=== PATIENT | male | born 1960 | race Caucasian/White ===

== ENCOUNTER 2017-12-03 21:55 | Emergency (ER) | payer BC, OTHER ==
[2017-12-03 21:55] VITALS: BMI 25.7
[2017-12-03 22:01] VITALS: BP 145/88; PULSE 73; RESP 16; TEMP 98.8; O2SAT 97
--- NOTE | 2017-12-03 22:44 | ED PDOC ---
Upper Extremity Pain/Injury Time Seen by Provider: 12/03/17 22:02 Chief Complaint (Nursing): Upper Extremity Problem/Injury Chief Complaint (Provider): Left Elbow Injury History Per: Patient History/Exam Limitations: no limitations Onset/Duration Of Symptoms: Days (x7) Pain Scale Rating Of: 4 Exacerbating Factor(s): Movement (bending the elbow) Additional Complaint(s): Patient is a 57 year old male who presents for evaluation of left elbow swelling. Patient states that 1 week ago he was attempting to jump over a puddle of water when he struck his left elbow against a metal door frame. Patient states that initially he had significant pain and bruising which has since resolved, but notes that for the past few days his elbow has been swelling , especially after lifting weights at the gym. Patient denies any history of elbow injury and took no medications prior to arrival. He reports mild pain with bending the elbow, otherwise patient has no complaints at present. Patient is right hand dominant. PMD: Ashok Pruitt Past Medical History Reviewed: Historical Data, Nursing Documentation, Vital Signs Vital Signs: Last Vital Signs Temp 98.8 F 12/03/17 21:58 Pulse 73 12/03/17 21:58 Resp 16 12/03/17 21:58 BP 145/88 12/03/17 21:58 Pulse Ox 97 12/03/17 21:58 - Medical History PMH: HTN, Hypercholesterolemia, Hyperlipidemia - Family History Family History: States: Unknown Family Hx - Living Arrangements Living Arrangements: With Family - Social History Current smoker - smoking cessation education provided: No Drugs: Denies - Home Medications Home Medications: Ambulatory Orders Medication Instructions Recorded Atorvastatin Calcium 40 mg PO DAILY 03/11/14 Enalapril Maleate 2.5 mg PO BID 03/11/14 Ezetimibe [Zetia] 10 mg PO DAILY 03/11/14 Metoprolol Tartrate 25 mg PO BID 03/11/14 Aspirin 81 mg PO DAILY #0 ect 03/15/14 Azithromycin [Zithromax] 500 mg PO DAILY #10 tab 03/15/14 Cefdinir [Omnicef] 300 mg PO Q12H #14 cap 03/15/14 Lactobacillus Acidophilus [Bacid] 500 million PO DAILY #0 cap 03/15/14 Azithromycin [Zithromax] 250 mg PO DAILY #6 tab 02/15/16 Cyclobenzaprine [Flexeril] 5 mg PO TID #21 tab 07/15/15 Famotidine [Pepcid] 20 mg PO BID #14 tab 07/15/15 Naproxen 500 mg PO BID #14 tab 07/15/15 Naproxen 500 mg PO BID PRN #20 tab 12/03/17 - Allergies Allergies/Adverse Reactions: Allergies Allergy/AdvReac Type Severity Reaction Status Date / Time No Known Allergies Allergy Verified 12/03/17 21:58 Review of Systems ROS Statement: Except As Marked, All Systems Reviewed And Found Negative Musculoskeletal: Positive for: Other (Left Elbow Pain) Physical Exam - Reviewed Nursing Documentation Reviewed: Yes Vital Signs Reviewed: Yes - Physical Exam Appears: Positive for: Well, Non-toxic, No Acute Distress Head Exam: Positive for: ATRAUMATIC, NORMOCEPHALIC Skin: Positive for: Normal Color, Warm, Dry Eye Exam: Positive for: EOMI, PERRL ENT: Positive for: Other (Airway patent, (-) stridor. Mucus membranes moist.) Neck: Positive for: Painless ROM, Supple Cardiovascular/Chest: Positive for: Regular Rate, Rhythm Respiratory: Positive for: Normal Breath Sounds. Negative for: Decreased Breath Sounds, Accessory Muscle Use, Respiratory Distress Extremity: Positive for: Normal ROM (of left elbow ), Tenderness (to olecranon) , Capillary Refill (intact), Swelling (to olecranon bursa), Other (Sensation intact throughout. (-) ecchymosis (-) skin break (-) erythema) Neurologic/Psych: Positive for: Alert, Oriented (x3), Gait (steady). Negative for: Aphasia, Facial Droop - ECG O2 Sat by Pulse Oximetry: 97 (RA) Pulse Ox Interpretation: Normal Medical Decision Making Medical Decision Making: Initial Impression: Elbow injury, probable bursitis Plan: -Ibuprofen 600mg PO -Elbow XR three views -Re-evaluation 2340 XR : no fracture, no dislocation, (+) soft tissue swelling to olecranon as read by PA Patient advised that official radiology read of XR is still pending and will call the patient if there is any discrepancy within 24 hours. On re-evaluation, patient reports improvement of symptoms On exam, patient remains AAOx3, in no acute distress. On exam, neck is supple, lungs CTA, cardiac RRR, neuro exam shows no focal findings. VSS, stable for discharge. Diagnostic results d/w the patient in great detail. Dx of acute elbow pain and swelling, olecranon bursitis d/w the patient. Based on history, exam and diagnostic results plan will be for discharge and outpatient ortho follow up. Advised to follow up with primary care physician/ortho in 1-2 days without fail. Advised to take medication as prescribed. Return to the emergency room at any time for any new or worsening symptoms. Patient states he fully agrees with and understands discharge instructions. States that he agrees with the plan and disposition. Verbalized and repeated discharge instructions and plan. I have given the patient opportunity to ask any additional questions. Disposition - Clinical Impression Clinical Impression: Bursitis of left elbow, Elbow pain, left - Patient ED Disposition Is Patient to be Admitted: No Counseled Patient/Family Regarding: Studies Performed, Diagnosis, Need For Followup, Rx Given - Disposition Referrals: Raji Santacruz MD [Medical Doctor] - Disposition: Routine/Home Disposition Time: 23:41 Condition: STABLE Additional Instructions: The emergency medical care you received today was directed at your acute symptoms. If you were prescribed any medication, please fill it and take as directed. It may take several days for your symptoms to resolve. Return to the Emergency Department if your symptoms worsen, do not improve, or if you have any other problems. Please contact your doctor in 2 days for re-evaluation and follow up / or call one of the physicians/clinics you have been referred to that are listed on the Patient Visit Information form that is included in your discharge packet. Bring any paperwork you were given at discharge with you along with any medications you are taking to your follow up visit. Our treatment cannot replace ongoing medical care by a primary care provider (PCP) outside of the emergency department. Prescriptions: Naproxen 500 mg PO BID PRN #20 tab PRN Reason: Pain, Moderate (4-7) Instructions: Bursitis, Olecranon Bursitis Forms: [employer] [facility] (Mauritian) Print Language: GABONESE - POA Present On Arrival: Falls Or Trauma
--- NOTE | 2017-12-04 16:12 | RAD ---
Date of service: 12/03/2017 PROCEDURE: Radiographs of the left elbow. HISTORY: joint pain COMPARISON: No prior. FINDINGS: BONES: Normal. No fracture. JOINTS: Normal. No osteoarthritis. SOFT TISSUES: Normal. JOINT EFFUSION: None. OTHER FINDINGS: None IMPRESSION: Unremarkable radiographs of the left elbow.
== END 2017-12-04 00:06 | disposition home or self-care (01) ==
LOC: H.ER 21:55
DX: M70.22 Olecranon bursitis, left elbow (principal); M25.522 Pain in left elbow; I10 Essential (primary) hypertension; Z79.82 Long term (current) use of aspirin; E78.00 Pure hypercholesterolemia, unspecified; W22.09XA Striking against other stationary object, initial encounter

== ENCOUNTER 2017-12-16 18:27 | Emergency (ER) | payer BC ==
[2017-12-16 18:27] VITALS: BMI 25.7
[2017-12-16 18:42] VITALS: RESP 16; TEMP 98
[2017-12-16] MEDS ORDERED: Sodium Chloride 0.9% 1,000 ML IV STA (19:21)
--- NOTE | 2017-12-16 19:24 | ED PDOC ---
HPI: Altered Mental Status Time Seen by Provider: 12/16/17 19:13 Chief Complaint (Nursing): Altered Mental Status Chief Complaint (Provider): confusion History Per: Family History/Exam Limitations: None Onset/Duration Of Symptoms: Sudden Onset (5pm) Current Symptoms Are (Timing): Gone Now Description Of Symptoms: Confused Usual Baseline: Alert Confused Exacerbating Factor(s): Other (heat) Associated Symptoms: Disoriented, Confused, Not Eating, Dyspnea. denies: Fever , Chills, Sweating, Chest Pain, Vomiting Additional Complaint(s): reports that the patient had spent 3 hours outside in the afternoon cleaning his car (90 degrees and humid). He hadn't eaten anything since breakfast. When he came up to the house, he took a shower. But his reports that he was confused and didn't remember he was cleaning his car and he ate a sandwich and went back to take another shower. The tried to ask him simple questions and he was not oriented. He thought he had to work today (normally doesn't work on Mondays) and tried to get ready for work even though it was 5pm (normally he works at 7am.) Pt says he is starting to recall his day just now, but feels lightheaded. Denies chest pain but reports he had shortness of breath earlier when he was hot. Denies headache or weakness. PMD Dr Pruitt. Past Medical History Reviewed: Historical Data, Nursing Documentation, Vital Signs Vital Signs: Last Vital Signs Temp 98.0 F 12/16/17 18:38 Pulse 78 12/16/17 18:38 Resp 16 12/16/17 18:38 BP 148/84 12/16/17 18:38 Pulse Ox 99 12/16/17 18:38 - Medical History PMH: HTN, Hypercholesterolemia, Hyperlipidemia Denies: HIV, Chronic Kidney Disease - Surgical History Surgical History: No Surg Hx - Family History Family History: States: Hypertension - Social History Current smoker - smoking cessation education provided: No Drugs: Denies - Immunization History Hx Tetanus Toxoid Vaccination: No Hx Influenza Vaccination: No Hx Pneumococcal Vaccination: No - Home Medications Home Medications: Ambulatory Orders Medication Instructions Recorded Atorvastatin Calcium 40 mg PO DAILY 03/11/14 Enalapril Maleate 2.5 mg PO BID 03/11/14 Ezetimibe [Zetia] 10 mg PO DAILY 03/11/14 Metoprolol Tartrate 25 mg PO BID 03/11/14 Aspirin 81 mg PO DAILY #0 ect 03/15/14 Azithromycin [Zithromax] 500 mg PO DAILY #10 tab 03/15/14 Cefdinir [Omnicef] 300 mg PO Q12H #14 cap 03/15/14 Lactobacillus Acidophilus [Bacid] 500 million PO DAILY #0 cap 03/15/14 Azithromycin [Zithromax] 250 mg PO DAILY #6 tab 06/06/15 Cyclobenzaprine [Flexeril] 5 mg PO TID #21 tab 07/15/15 Famotidine [Pepcid] 20 mg PO BID #14 tab 07/15/15 Naproxen 500 mg PO BID #14 tab 07/15/15 Naproxen 500 mg PO BID PRN #20 tab 12/03/17 - Allergies Allergies/Adverse Reactions: Allergies Allergy/AdvReac Type Severity Reaction Status Date / Time No Known Allergies Allergy Verified 12/03/17 21:58 Review of Systems ROS Statement: Except As Marked, All Systems Reviewed And Found Negative (and as per HPI) Constitutional: Positive for: Sweats, Weakness, Malaise. Negative for: Fever Cardiovascular: Positive for: Light Headedness. Negative for: Chest Pain Respiratory: Positive for: Shortness of Breath. Negative for: Cough Neurological: Positive for: Confusion, Altered Mental Status. Negative for: Weakness, Numbness, Headache Physical Exam - Reviewed Nursing Documentation Reviewed: Yes Vital Signs Reviewed: Yes - Physical Exam Appears: Positive for: Non-toxic, No Acute Distress Head Exam: Positive for: ATRAUMATIC, NORMOCEPHALIC Skin: Positive for: Warm, Dry Eye Exam: Positive for: EOMI, PERRL ENT: Positive for: Other (mucus membranes moist). Negative for: Pharyngeal Erythema, Tonsillar Exudate Neck: Positive for: Painless ROM, Supple Cardiovascular/Chest: Positive for: Regular Rate, Rhythm. Negative for: Murmur Respiratory: Positive for: Normal Breath Sounds. Negative for: Wheezing Gastrointestinal/Abdominal: Positive for: Soft. Negative for: Tenderness Back: Positive for: Normal Inspection. Negative for: Decreased ROM Extremity: Positive for: Normal ROM. Negative for: Deformity Lymphatic: Negative for: Adenopathy Neurologic/Psych: Positive for: Alert. Negative for: Motor/Sensory Deficits - Laboratory Results Result Diagrams: 12/16/17 19:37 12/16/17 19:37 - ECG O2 Sat by Pulse Oximetry: 99 - Progress ED Course And Treament: EXAM: CT Head Without Intravenous Contrast EXAM DATE/TIME: 12/16/2017 7:21 PM CLINICAL HISTORY: 57 years old, male; Signs and symptoms; Dizziness and other: AMS; Additional info: Altered mental status TECHNIQUE: Axial computed tomography images of the head/brain without intravenous contrast. All CT scans at this facility use at least one of these dose optimization techniques: automated exposure control; mA and/or kV adjustment per patient size (includes targeted exams where dose is matched to clinical indication); or iterative reconstruction. Coronal and sagittal reformatted images were created and reviewed. COMPARISON: No relevant prior studies available. FINDINGS: Brain: Normal. No hemorrhage. No significant white matter disease. No edema. Ventricles: Normal. No ventriculomegaly. Bones/joints: Normal. No acute fracture. Sinuses: Normal as visualized. No acute sinusitis. Mastoid air cells: Normal as visualized. No mastoid effusion. Soft tissues: Normal. IMPRESSION: No acute intracranial pathology. Thank you for allowing us to participate in the care of your patient. Dictated and Authenticated by: Dick Pandey MD 12/16/2017 8:14 PM Eastern Time ([place] & [place]) Medical Decision Making Medical Decision Makinyo with no medical problems with altered mental status after prolonged time outdoors in 90degree heat and humidity, nonfocal exam, normal bloodwork and brain imaging, and resolution of symptoms while in ER and after IVF hydration. Stable for dc with continued rest and f/u pmd. Educated on dangers of heat exposure. Disposition - Clinical Impression Clinical Impression: Heat stroke Counseled Patient/Family Regarding: Studies Performed, Diagnosis, Need For Followup - Disposition Referrals: Ashok Pruitt MD [Family Provider] - 12/17/17 [facility] Cummings [Outside] Disposition: Routine/Home Disposition Time: 21:00 Condition: IMPROVED Additional Instructions: CONTINUE TO REST AND DRINK PLENTY OF HYDRATING FLUIDS FOLLOW UP WITH DR PRUITT OR SONIA RICKS IN 24-48 HOURS FOR REEVALUATION. Instructions: Heat Exhaustion and Heat Stroke (DC) Forms: [facility] ED School/Work Excuse, [facility] (Panamanian) Print Language: LUXEMBOURGISH
[2017-12-16 19:44] LABS: BASO # 0.1 K/uL (0.0-0.2); BASO % 0.9 % (0.0-2.0); EOS # 0.1 K/uL (0.0-0.7); HEMOGLOBIN 13.7 g/dL (12.0-18.0); LYMPH # 2.1 K/uL (1.0-4.3); LYMPH % 21.6 % (20.0-40.0); MEAN CELL VOLUME 94.7 fl (80.0-94.0); MEAN CORPUSCULAR HEMOGLOBIN 32.1 pg (27.0-31.0); MEAN CORPUSCULAR HGB CONC 33.9 g/dL (33.0-37.0); MEAN PLATELET VOLUME 8.1 fl (7.2-11.7); MONO % 9.9 % (0.0-10.0); NEUT # 6.4 K/uL (1.8-7.0); NEUT % 66.6 % (50.0-75.0); RBC 4.27 Mil/uL (4.40-5.90); RED CELL DISTRIBUTION WIDTH 14.4 % (11.5-14.5); WHITE BLOOD COUNT 9.6 K/uL (4.8-10.8)
[2017-12-16 19:55] LABS: ALB/GLOB RATIO 1.4 (1.0-2.1); ALBUMIN 4.3 g/dL (3.5-5.0); ALT/SGPT 37 U/L (21-72); AST/SGOT 38 U/L (17-59); BLOOD UREA NITROGEN 20 mg/dl (9-20); CALCIUM 9.3 mg/dL (8.4-10.2); GFR NON-AFRICAN AMERICAN > 60
[2017-12-16 20:23] VITALS: PULSE 61
[2017-12-16 20:54] LABS: BARBITURATES, UR NEGATIVE (NEGATIVE); BENZODIAZEPINES, UR NEGATIVE (NEGATIVE); OPIATES, UR NEGATIVE (NEGATIVE); PHENCYCLIDINE, UR NEGATIVE (NEGATIVE)
[2017-12-16 21:41] VITALS: BP 134/75; O2SAT 100
--- NOTE | 2017-12-17 09:29 | CT ---
Date of service: 12/16/2017 PROCEDURE: CT HEAD WITHOUT CONTRAST. HISTORY: altered mental status COMPARISON: None available. TECHNIQUE: Axial computed tomography images were obtained through the head/brain without intravenous contrast. Radiation dose: Total exam DLP = 839.48 mGy-cm. This CT exam was performed using one or more of the following dose reduction techniques: Automated exposure control, adjustment of the mA and/or kV according to patient size, and/or use of iterative reconstruction technique. FINDINGS: HEMORRHAGE: No intracranial hemorrhage. BRAIN: Anguiano-white matter differentiation is preserved. There is no mass, mass effect or abnormal extra-axial fluid collection. There is no territorial infarction. The midline sagittal structures are normal. VENTRICLES: The ventricles are normal in size, shape and configuration. CALVARIUM: There is no calvarial fracture or extracranial soft tissue swelling. PARANASAL SINUSES: Predominantly clear. MASTOID AIR CELLS: Predominantly clear. OTHER FINDINGS: None. IMPRESSION: No acute intracranial abnormality. A preliminary report was provided by [facility] services.
--- NOTE | 2017-12-17 09:31 | CARD ---
APPROVED REPORT Date of service: 12/16/2017 <Conclusion> Sinus rhythm with sinus arrhythmia with occasional premature ventricular complexes Otherwise normal ECG
== END 2017-12-16 21:40 | disposition home or self-care (01) ==
LOC: H.ER 18:27
DX: T67.0XXA Heatstroke and sunstroke, initial encounter (principal); I10 Essential (primary) hypertension; Z79.82 Long term (current) use of aspirin; E78.00 Pure hypercholesterolemia, unspecified
CPT/HCPCS: 70450; 80053; 82140; 82550; 82948; 83605; 83735; 84100; 84484; 85025; 93005; 96360; 99285; G0480; J7030

== ENCOUNTER 2018-03-16 17:01 | Emergency (ER) | payer BC ==
[2018-03-16 17:03] VITALS: BMI 25.7
[2018-03-16 17:13] VITALS: RESP 18
[2018-03-16] MEDS ORDERED: Magnesium Hydroxide Susp 30 ml UD PO STA (17:35)
--- NOTE | 2018-03-16 17:35 | ED PDOC ---
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 drank approx 1/4 of a 8 ounce bottle of investment strategist at 10am when trying to take his bp med. He vomited right after and pill fragments also came out. After that pt. went to the gym, carried on with his day, and had soup. He came to the ER now as he was having nausea and a foul smell in his mouth. No abd pain, chest pain, dyspnea, weakness, headaches, dizziness, neck pain, fever, dizziness, diarhea. Past Medical History Reviewed: Nursing Documentation, Vital Signs Vital Signs: Last Vital Signs Temp 98.2 F 03/16/18 17:09 Pulse 56 L 03/16/18 17:09 Resp 18 03/16/18 17:09 BP 157/94 H 03/16/18 17:09 Pulse Ox 99 03/16/18 17:09 - Medical History PMH: HTN, Hypercholesterolemia, Hyperlipidemia Denies: HIV, Chronic Kidney Disease - Surgical History Surgical History: No Surg Hx - Family History Family History: States: Unknown Family Hx - Living Arrangements Living Arrangements: With Family - Immunization History Hx Tetanus Toxoid Vaccination: No Hx Influenza Vaccination: No Hx Pneumococcal Vaccination: No - Home Medications Home Medications: Ambulatory Orders Medication Instructions Recorded Atorvastatin Calcium 40 mg PO DAILY 03/11/14 Enalapril Maleate 2.5 mg PO BID 03/11/14 Ezetimibe [Zetia] 10 mg PO DAILY 03/11/14 Metoprolol Tartrate 25 mg PO BID 03/11/14 Aspirin 81 mg PO DAILY #0 ect 03/15/14 Azithromycin [Zithromax] 500 mg PO DAILY #10 tab 03/15/14 Cefdinir [Omnicef] 300 mg PO Q12H #14 cap 03/15/14 Lactobacillus Acidophilus [Bacid] 500 million PO DAILY #0 cap 03/15/14 Azithromycin [Zithromax] 250 mg PO DAILY #6 tab 06/06/15 Cyclobenzaprine [Flexeril] 5 mg PO TID #21 tab 07/15/15 Famotidine [Pepcid] 20 mg PO BID #14 tab 07/15/15 Naproxen 500 mg PO BID #14 tab 07/15/15 Naproxen 500 mg PO BID PRN #20 tab 12/03/17 Famotidine [Pepcid] 40 mg PO DAILY PRN 5 Days tab 03/16/18 Magnesium Hydroxide [Milk Of 30 ml PO DAILY PRN 5 Days udc 03/16/18 Magnesia] Ondansetron [Zofran] 4 mg PO Q8H PRN #6 tab 03/16/18 - Allergies Allergies/Adverse Reactions: Allergies Allergy/AdvReac Type Severity Reaction Status Date / Time No Known Allergies Allergy Verified 12/03/17 21:58 Review of Systems ROS Statement: Except As Marked, All Systems Reviewed And Found Negative Gastrointestinal: Positive for: Nausea, Vomiting Physical Exam - Reviewed Nursing Documentation Reviewed: Yes Vital Signs Reviewed: Yes - Physical Exam Appears: Positive for: Non-toxic, No Acute Distress Head Exam: Positive for: ATRAUMATIC, NORMAL INSPECTION, NORMOCEPHALIC Skin: Positive for: Normal Color, Warm, DRY Eye Exam: Positive for: EOMI, Normal appearance, PERRL ENT: Positive for: Normal ENT Inspection Neck: Positive for: Normal, Painless ROM Cardiovascular/Chest: Positive for: Regular Rate, Rhythm Respiratory: Positive for: CNT, Normal Breath Sounds Gastrointestinal/Abdominal: Positive for: Normal Exam, Soft. Negative for: Tenderness Back: Positive for: Normal Inspection. Negative for: L CVA Tenderness, R CVA Tenderness Extremity: Positive for: Normal ROM. Negative for: Tenderness Neurologic/Psych: Positive for: Alert, inletter II-XII, Oriented - ECG O2 Sat by Pulse Oximetry: 99 Pulse Ox Interpretation: Normal - Progress ED Course And Treament: 1733: Spoke with poison control. Made aware of pt. drinking a investment strategist for the car from an 8 ounce bottle. States only 1/4 or so was drank and some vomited out, so symptomatic tx only and can dc. This can cause nausea and vomit. Disposition - Clinical Impression Clinical Impression: Accidental ingestion of substance - Patient ED Disposition Is Patient to be Admitted: No Counseled Patient/Family Regarding: Diagnosis, Need For Followup, Rx Given - Disposition Referrals: [facility] [Outside] - 03/17/18 Disposition: Routine/Home Disposition Time: 18:01 Condition: STABLE Additional Instructions: Return if not better in 3 days. Prescriptions: Famotidine [Pepcid] 40 mg PO DAILY PRN 5 Days tab PRN Reason: Pain Magnesium Hydroxide [Milk Of Magnesia] 30 ml PO DAILY PRN 5 Days udc PRN Reason: Pain, Moderate (4-7) Ondansetron [Zofran] 4 mg PO Q8H PRN #6 tab PRN Reason: Nausea/Vomiting Instructions: Chemical Ingestion (DC) Forms: [facility] (Swedish), [facility] ED School/Work Excuse
[2018-03-16] MEDS ORDERED: Magnesium Hydroxide Susp 30 ml UD ONE (18:17)
[2018-03-16 19:07] VITALS: BP 138/88; PULSE 53; TEMP 97.5; O2SAT 98
== END 2018-03-16 19:17 | disposition home or self-care (01) ==
LOC: H.ER 17:01
DX: Z03.6 Encounter for observation for suspected toxic effect from ingested substance ruled out (principal)